=== PATIENT | male | born 1950 | race Caucasian/White ===

== ENCOUNTER 2020-01-12 15:34 | Emergency (ER) | payer OTHER ==
[~2020-01-12] VITALS: Ht 180.3 cm; Wt 100.0 kg
[~2020-01-12 15:34] MED LIST: NORCO 325 MG-7.1 TAB PO; PRILOSEC 20MG20 MG PO; SUCRALFATE1 GM PO; TRAZODO50 MG PO
[2020-01-12 15:52] VITALS: TEMP 97.5
[2020-01-12] MEDS ORDERED: LIPITOR20 MG PO (16:28)
[2020-01-12] MEDS ORDERED: COZAAR 50MG50 MG/TAB PO (16:28)
[2020-01-12 16:42] LABS: COLLECTION METHOD IN
[2020-01-12 16:57] LABS: PH 6 (5-8); SQUAMOUS EPITHELIAL None Seen /hpf; URINE APPEARANCE Clear; URINE BACTERIA None Seen /hpf; URINE BILIRUBIN Negative (NEGATIVE); URINE BLOOD 2+ (NEGATIVE); URINE COLOR Yellow; URINE GLUCOSE Negative (NEGATIVE); URINE KETONE Negative (NEGATIVE); URINE LEUKOCYTE ESTERASE Negative (NEGATIVE); URINE NITRATE Negative (NEGATIVE); URINE PROTEIN(semi-quant) Negative (NEGATIVE); URINE UROBILINOGEN Negative (NEGATIVE)
[2020-01-12] MEDS ORDERED: MACROBID 1100 MG/CAP PO (17:14)
[2020-01-12] MEDS ORDERED: FLOMAX 0.40.4 MG/CAP PO (17:14)
[2020-01-12 17:54] VITALS: BP 157/95; PULSE 94
== END 2020-01-12 18:00 | disposition home or self-care (01) ==
LOC: COL.ER 15:34
PROVIDERS: Emergency Medicine
DX: R33.9 Retention of urine, unspecified (principal)

== ENCOUNTER 2021-01-01 10:51 | Day surgery (SDC) | payer OTHER ==
[2021-01-01] VITALS (10 sets, daily range): BP systolic 108–149; BP diastolic 51–73; PULSE 40–59; TEMP 97.2–98.2
[~2021-01-01] VITALS: Ht 180.3 cm; Wt 90.6 kg
[~2021-01-01 10:51] MED LIST changes: +COZAAR 50MG50 MG/TAB PO; +FLOMAX 0.40.4 MG/CAP PO; +LIPITOR20 MG PO; +MACROBID 1100 MG/CAP PO
[2021-01-01] MEDS ORDERED: PROSCAR 5MG5 MG PO (11:45)
--- NOTE | 2021-01-01 13:22 | NUR ---
Patient was assisted with ambulating to BR. Voided successfully before surgery. OR, RN was waiting in room to take patient back.
--- NOTE | 2021-01-01 16:06 | NUR ---
REPORT FROM GILMA SHANK BURNISHER. PT IS A/O X3, LUNGS COARSE, BOWEL SOUNDS PRESENT. CBI RUNNING TO PINK IN BAG. IV TO RFA.
[2021-01-02 03:03] VITALS: BP 126/63; PULSE 62; TEMP 98
--- NOTE | 2021-01-02 03:15 | NUR ---
PT RESTING QUIETLY IN BED. CBI RUNNING @ A MODERATELY SLOW RATE, URINE IN TUBING IS PINK ET CLEAR. IVF INFUSING. PT HAS TOLERATED PO INTAKE WELL. NO NAUSEA OR VOMITTING. HAS DENIED PAIN WHEN ASKED. SENSATION ET MOVEMENT NORMAL ET INTACT IN BILATERAL LOWER EXTREMITIES. RESPIRATIONS UNLABORED, CALL LIGHT WITHIN REACH.
--- NOTE | 2021-01-02 05:08 | NUR ---
PERIPHERAL IV SALINE LOCKED @ THIS TIME. PT TOLERATING PO FLUIDS WELL. HAS BEEN DRINKING GATORADE. CBI INFUSING @ A SLOW RATE, COLOR IS PINK ET CLEAR. PT DENIES OTHER NEEDS. CALL LIGHT WITHIN REACH.
[2021-01-02 08:17] VITALS: BP 139/70; PULSE 61; TEMP 97.7
--- NOTE | 2021-01-02 10:02 | NUR ---
ornamental metal worker apprentice met with patient to discuss discahrge plan. Patient lives at home with his cousin Antelmo in [facility]. Antelmo's phone number is the same as the patients. Patient states that he is fully independent with all of his ADL's and does not utilize any medical equipment to assist with mobility. [facility] [place] [facility] and utilizes the [place] for perscriptions. Patient does not have a DPOA-HC established, but is interested in one. Patient would like to put his daughter, Sharla Preston down but does not know her phone number. Sharla lives in [place]. Patient's plan is to return home and has no concerns. Discharge plan: Home
--- NOTE | 2021-01-02 10:08 | NUR ---
PT RESTING IN BED. PT UP TO BR AND STRAINED WITH BM. INCREASING BLOOD IN CATHETER. DR. SCHMITZ IN TO SEE PT AND WANTS TO CONTINUE WITH CBI.
--- NOTE | 2021-01-02 10:34 | NUR ---
Initial visit; Patient thanked Jai Alai Player for looking in on him and offering God's blessings.
[2021-01-02 12:55] VITALS: BP 140/61; PULSE 81; TEMP 98
[2021-01-02 16:05] VITALS: BP 141/66; PULSE 82; TEMP 98.2
[2021-01-02 20:01] VITALS: BP 129/69; PULSE 64; TEMP 98.4
[2021-01-02 22:51] VITALS: BP 125/60; PULSE 74; TEMP 98.6
--- NOTE | 2021-01-03 00:57 | NUR ---
PT IS AWAKE @ THIS TIME. CBI INFUSING @ A FAST RATE, STORM CATHETER DRAINING. URINE IN TUBING IS CLEAR PINK WITH OCCASIONAL SMALL CLOTS SEEN. PT CONTINUES TO BLEED SLOWLY AROUND STORM CATHETER SITE.
[2021-01-03 04:14] VITALS: BP 120/63; PULSE 79; TEMP 98.1
--- NOTE | 2021-01-03 06:00 | NUR ---
Report received from MEG Hurst. PT in bed resting, denies needs. CBI running at slow rate with pink clear urine and some small clots. Denies needs, will continue to monitor.
[2021-01-03 08:25] VITALS: BP 122/62; PULSE 59; TEMP 97.8
--- NOTE | 2021-01-03 09:47 | NUR ---
Assessment charted. Pt prime and pulled per Dr. Azul. Carrera catheter removed, pericare provided, instilled 200 ccs of saline prior to d/c, pt tolerated well and has had 3 successful voids since removal. Denies pain or other needs. INT to RH. Will continue to monitor.
[2021-01-03 11:21] VITALS: BP 131/68; PULSE 57; TEMP 97.8
[2021-01-03 15:19] VITALS: BP 132/59; PULSE 68; TEMP 98.1
--- NOTE | 2021-01-03 17:07 | NUR ---
Discharge teaching completed at this time, pt recieved discharge packet. Per pt, f/u already set up with [facility] office, primary, and scripts were already called in by office. Pt INT dc'd, tip intact. Pt left with all bleongings, escorted out via w/c by myself, family to drive home, criteria met.
== END 2021-01-03 16:50 | disposition home or self-care (01) ==
LOC: SDCO 10:51 → SURG 15:34 → SDCO 01-03 16:50
DX: N40.1 Benign prostatic hyperplasia with lower urinary tract symptoms (principal); R33.8 Other retention of urine; N13.8 Other obstructive and reflux uropathy; E78.5 Hyperlipidemia, unspecified; I10 Essential (primary) hypertension; K21.9 Gastro-esophageal reflux disease without esophagitis; Z87.891 Personal history of nicotine dependence; Z79.899 Other long term (current) drug therapy
CPT/HCPCS: OP; J0690; J2250; J2704; J3480